=== PATIENT | male | born 1990 ===

== ENCOUNTER → 2018-11-22 | Outpatient (CLI) | payer BC ==
[~2018-11-22] MED LIST: MELO-207 PO
--- NOTE | 2018-11-22 15:20 | RADIOLOGY IMAGING REPORT ---
FACILITY: PATIENT NAME: Sean Sales : 1990 MR: [id number] V: [id number] EXAM DATE: ORDERING PHYSICIAN: MARICARMEN NG TECHNOLOGIST: Location: [facility] Patient: Sean Sales : 1990 Visit/Account:[id number] Date of Sevice: 11/22/2018 Exam type: KNEE 3 VIEW LEFT History: Left knee pain for two years, denies trauma Comparison: None. Findings: Three views of the left knee were submitted. There is no evidence of acute fracture, dislocation, si gnificant arthritic change, lytic or blastic bone lesion . IMPRESSION: 1. No acute osteoarticular abnormality the left knee is seen Report Dictated By: Amada Real MD at 11/22/2018 3:08 PM Report E-Signed By: Amada Real MD at 11/22/2018 3:14 PM WSN:[email or web address]
--- NOTE | 2018-11-22 15:22 | RADIOLOGY IMAGING REPORT ---
FACILITY: [facility] PATIENT NAME: Sean Sales : 1990 MR: [id number] V: [id number] EXAM DATE: ORDERING PHYSICIAN: MARICARMEN NG TECHNOLOGIST: Location: [facility] [place] Patient: Sean Sales : 1990 Visit/Account:[id number] Date of Sevice: 11/22/2018 Exam type: HIP LEFT History: Left hip pain for one to two months, denies trauma Comparison: None. Findings: Two views of the left hip demonstrate no evidence of acute fracture, dislocation, significant arthrit ic change, lytic or blastic bone lesion IMPRESSION: 1. No acute osteoarticular abnormality the left hip is seen Report Dictated By: Amada Real MD at 11/22/2018 3:17 PM Report E-Signed By: Amada Real MD at 11/22/2018 3:18 PM WSN:[email or web address]
== END ==
LOC: RAD 14:04
PROVIDERS: ATTEND Internal Medicine
DX: S86.912A Strain of unspecified muscle(s) and tendon(s) at lower leg level, left leg, initial encounter (principal); M25.552 Pain in left hip